=== PATIENT | female | born 2005 | race Caucasian/White ===

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

== ENCOUNTER 2025-08-18 19:15 | Emergency (ER) | payer OTHER ==
[2025-08-18] MEDS ORDERED: Acetaminophen 500 MG TAB ONE (19:29)
[2025-08-18] MEDS ORDERED: predniSONE 10 MG TAB ONE (20:27)
[2025-08-18] MEDS ORDERED: predniSONE 20 MG TAB ONE (20:27)
[2025-08-18] MEDS ORDERED: Ketorolac Tromethamine 30 MG (1 mL) VIAL ONE (21:15)
== END 2025-08-18 22:33 | disposition home or self-care (01) ==
LOC: MADERS 19:15
DX: B34.9 Viral infection, unspecified (principal); J45.909 Unspecified asthma, uncomplicated; F17.290 Nicotine dependence, other tobacco product, uncomplicated
CPT/HCPCS: 71046; 87428; 96374; 99406; J1885; J7120; J7512